=== PATIENT | male | born 1985 | race Caucasian/White ===

== ENCOUNTER 2024-12-07 20:42 | Emergency (ER) | payer BC ==
[~2024-12-07] VITALS: Ht 180.3 cm; Wt 65.6 kg
[2024-12-07 22:05] LABS: BASOPHILS % (AUTO) 0.2 % (0-1); EOSINOPHILS % (AUTO) 0.1 % (0-6); HEMATOCRIT 47.3 % (42.0-52.0); HEMOGLOBIN 16.5 g/dl (14.0-17.9); LYMPHOCYTES # (AUTO) 1.2 X10'3 (1.1-4.8); LYMPHOCYTES % (AUTO) 11.2 % (21-51); MEAN CORPUSCULAR HEMOGLOBIN 29.2 PG (27.0-31.0); MEAN CORPUSCULAR HGB CONC 34.8 g/dL (33.0-36.5); MEAN CORPUSCULAR VOLUME 83.9 FL (78-98); MEAN PLATELET VOLUME 7.6 FL (7.4-10.4); MONOCYTES # (AUTO) 0.7 X10'3 (0-0.9); MONOCYTES % (AUTO) 6.8 % (2-12); NEUTROPHILS # (AUTO) 8.6 X10'3 (1.8-7.7); NEUTROPHILS % (AUTO) 81.7 % (42-75); PLATELET COUNT 282 X10'3 (140-440); RED BLOOD COUNT 5.64 X10'6 (4.70-6.10); RED CELL DISTRIBUTION WIDTH 13.5 % (11.5-14.5); WHITE BLOOD COUNT 10.5 X10'3 (4.5-11.0)
[2024-12-07 22:17] LABS: ALANINE AMINOTRANSFERASE 26 U/L (12-78); ALBUMIN 4.6 G/DL (3.4-5.0); ALBUMIN/GLOBULIN RATIO 1.3 (1.1-1.5); ALKALINE PHOSPHATASE 96 IU/L (46-116); ANION GAP 8 (8-16); ASPARTATE AMINO TRANSFERASE 14 U/L (10-37); BILIRUBIN,TOTAL 1.8 MG/DL (0.1-1.0); BLOOD UREA NITROGEN 15 MG/DL (7-18); BUN/CREATININE RATIO 18.1 (10.0-20.0); CALCIUM 9.2 MG/DL (8.5-10.1); CHLORIDE 108 MMOL/L (99-107); CREATININE 0.83 MG/DL (0.60-1.10); GLUCOSE 132 MG/DL (70-104); LIPASE 33 U/L (16-77); POTASSIUM 4.3 MMOL/L (3.5-5.1); SODIUM 142 MMOL/L (135-145); TOTAL PROTEIN 8.1 G/DL (6.4-8.2); eCRCL 110 ML/MIN; eGFR > 90 ML/MIN
--- NOTE | 2024-12-08 00:03 | Physician Documentation ---
History of Present Illness ~ Chief Complaint: Vomiting Stated Complaint: UNABLE TO KEEP WATER DOWN Time Seen by MD: 23:50 HPI Patient presents to the emergency room with vomiting since 10:00 a.m. this morning. Mild diarrhea. Patient endorses belching and burping up acid. History of reflux. He is also having some shoulder pain associated with retching. Epigastric pain positive. No fevers however he has been feeling flush. No sick contacts Medication Reconciliation Allergies: Coded Allergies: No Known Allergies (Unverified , 12/07/24) Review of Systems ROS All review of systems negative except as per HPI Physical Exam Vital Signs: Temperature: 96.8, Source: Temporal, Heart Rate: 80, Respiratory Rate: 15, BP: 142/65, Pulse Oximetry: 95, Weight: 65.600 Physical Exam General: Patient is awake, alert, oriented x4 in mild distress Head: Normocephalic and atraumatic. Eyes: Conjunctival normal. EOMI. PERRL. ENT: Mucous membranes moist. Neck: Supple, trachea is midline. Chest: Clear to auscultation bilaterally without rales, rhonchi, or wheezes. There is no accessory muscle use or retractions. Cardiac: RRR without murmurs, gallops, or rubs. Abd: Soft, nondistended, mild epigastric tenderness to palpation without peritonitis Progress Results/Orders Results/Orders Orders - JOSHUA RYAN MD Chest,Single View (12/08/24 00:35) Ondansetron Inj. (Zofran 4mg/2ml Vial) (12/08/24 05:55) Completed Orders - JOSHUA RYAN MD Cbc/Diff (12/07/24 21:17) BMP (12/07/24 21:17) Lipase (12/07/24 21:17) CMP (12/07/24 21:17) Ondansetron Disint. Tablet (Zofran Odt T (12/07/24 23:45) Troponin (Single) (12/07/24 23:58) Normal Saline 1000ml (Sodium Chloride 10 (12/08/24 00:00) Ondansetron Inj. (Zofran 4mg/2ml Vial) (12/08/24 00:00) Famotidine/Pf Iv Inj (Pepcid Iv Inj) (12/08/24 00:00) Pantoprazole 40mg Iv (Protonix 40mg Iv) (12/08/24 00:00) Chest,Single View (12/08/24 00:35) Electrocardiogram (12/08/24 00:03) Mag & Alum Hydrox/Simeth Susp (Maalox Or (12/08/24 01:10) Lidocaine 2% Viscous (Xylocaine 2% Visco (12/08/24 01:10) Prochlorperazine Inj (Compazine Inj) (12/08/24 03:20) Diphenhydramine Inj (Benadryl Inj.) (12/08/24 05:20) Midazolam 1 Mg/Ml 2ml Inj. (Versed 1 Mg/ (12/08/24 05:20) Ua W/Microscopic, Cult If Ind (12/08/24 05:00) Medications Received in ER Medications (Trade) Dose Ordered Sig/Joe Route PRN Reason Start Time Stop Time Status Last Admin Dose Admin (Zofran ODT tablet) 4 mg ONCE ONCE PO 12/07/24 23:45 12/07/24 23:47 DC 12/08/24 00:12 4 MG Sodium Chloride 1,000 ml @ 1,000 mls/hr ONCE ONCE IV 12/08/24 00:00 12/08/24 00:59 DC 12/08/24 00:11 1,000 MLS/HR (Zofran 4mg/2ml vial) 8 mg ONCE ONCE IV 12/08/24 00:00 12/08/24 00:34 DC 12/08/24 00:59 8 MG (Pepcid IV inj) 40 mg ONCE ONCE IV 12/08/24 00:00 12/08/24 00:01 DC 12/08/24 00:10 40 MG (Protonix 40mg IV) 40 mg ONCE ONCE IV 12/08/24 00:00 12/08/24 00:01 DC 12/08/24 00:10 40 MG (Maalox oral suspension) 30 ml ONCE ONCE PO 12/08/24 01:10 12/08/24 01:11 DC 12/08/24 01:58 30 ML (Xylocaine 2% Viscous 15mL cup) 15 ml ONCE ONCE MM 12/08/24 01:10 12/08/24 01:11 DC 12/08/24 01:58 15 ML (Compazine inj) 10 mg ONCE ONCE IV 12/08/24 03:20 12/08/24 04:29 DC 12/08/24 04:58 10 MG (Benadryl inj.) 25 mg ONCE ONCE IV 12/08/24 05:20 12/08/24 05:22 DC 12/08/24 05:26 25 MG (VERSED 1 MG/ML 2 ML inj.) 1 mg ONCE ONCE IV 12/08/24 05:20 12/08/24 05:21 DC 12/08/24 05:27 1 MG Vital Signs 12/07/24 12/08/24 12/08/24 12/08/24 21:15 00:17 00:21 02:02 Temp 96.8 96.8 Pulse 80 90 78 Resp 15 18 18 18 B/P (MAP) 142/65 158/113 (128) 128/77 (94) Pulse Ox 95 96 95 12/08/24 12/08/24 03:30 05:32 Temp 96.8 Pulse 82 76 Resp 16 16 B/P (MAP) 142/99 (113) 154/101 (118) Pulse Ox 95 95 Laboratory Tests Test 12/07/24 21:50 12/07/24 23:58 12/08/24 05:00 White Blood Count 10.5 Red Blood Count 5.64 Hemoglobin 16.5 Hematocrit 47.3 Mean Corpuscular Volume 83.9 Mean Corpuscular Hemoglobin 29.2 Mean Corpuscular Hemoglobin Concent 34.8 Red Cell Distribution Width 13.5 Platelet Count 282 Mean Platelet Volume 7.6 Neutrophils (%) (Auto) 81.7 H Lymphocytes (%) (Auto) 11.2 L Monocytes (%) (Auto) 6.8 Eosinophils (%) (Auto) 0.1 Basophils (%) (Auto) 0.2 Neutrophils # (Auto) 8.6 H Lymphocytes # (Auto) 1.2 Monocytes # (Auto) 0.7 Eosinophils # (Auto) 0.0 Basophils # (Auto) 0.0 CBC Comment Sodium Level 142 Potassium Level 4.3 Chloride Level 108 H Carbon Dioxide Level 26.0 Anion Gap 8 Blood Urea Nitrogen 15 Creatinine 0.83 Estimated GFR/1.73 m2 > 90 BUN/Creatinine Ratio 18.1 Glucose Level 132 H Calcium Level 9.2 Total Bilirubin 1.8 H Aspartate Amino Transf (AST/SGOT) 14 Alanine Aminotransferase (ALT/SGPT) 26 Alkaline Phosphatase 96 Total Protein 8.1 Albumin 4.6 Globulin 3.5 Albumin/Globulin Ratio 1.3 Lipase 33 Chemistry Comments Troponin I High Sensitivity 5 Urine Specimen Description Non-specified Urine Color Yellow Urine Clarity Clear Urine pH 6.0 Urine Specific [place] >=1.030 Urine Protein Trace Urine Glucose (UA) Negative Urine Ketones >=80 Urine Occult Blood Trace-intact Urine Nitrite Negative Urine Bilirubin Small Urine Urobilinogen 0.2 Urine Leukocyte Esterase Negative Urine RBC 3-10 Urine WBC 0-4 Urine Squamous Epithelial Cells Few Urine Bacteria Few Urine Mucus Moderate Urine Culture Indicated Not ind Volume Urine Centrifuged 10 ml Urine Comment EKG/XRAY/CT/US/VASC/MRI EKG : Additional Comment EKG interpreted by myself shows 0 12, rate 79, sinus rhythm, normal axis, no ST changes, no signs of pericarditis Chest X-Ray : Additional Comments Chest x-ray interpreted by myself shows no effusions, no infiltrates and normal cardiac silhouette Medical Decision Making Findings Patient presented to the emergency room with nausea and vomiting as per HPI. Differentials include but are not limited to viral syndrome, food poisoning, reflux, small-bowel obstruction therefore emergent labs ordered which were reassuring. Patient did have some shoulder pain that has concern for possible ACS therefore troponin and chest x-ray ordered which was reassuring. He is responding to treatment in his now tolerating p.o.. I do not feel he requires CT scan. Labs reassuring. Departure Disposition: HOME / SELF CARE / HOMELESS Impression: Primary Impression: Acute gastritis Condition: Improved Discharge Instructions: Gastritis, Adult Additional Instructions: Stay ahead of your nausea with a prescription for Zofran/ondansetron. I do believe that has an element of excessive acid contributing to your symptoms therefore Pepcid also prescribed. Referrals: NO PRIMARY CARE PROVIDER (PCP) Prescriptions Famotidine (Pepcid) 20 Mg Tablet 1 TAB PO Q12H, #30 TAB 0 Refills Prov: JOSHUA RYAN MD 12/08/24 Ondansetron 8mg ODT (Ondansetron Odt) 8 Mg Tab.rapdis 1 TAB PO Q6H for nausea/vomiting for 3 Days, #12 TAB 0 Refills Prov: JOSHUA RYAN MD 12/08/24 Education Educated: Patient Educated regarding: diagnosis, treatment, need for follow up Signature Scribe Signature: No scribe Attestation: The note accurately reflects work and decisions made by me.Joshua Ryan MD 12/08/24 05:58 JOSHUA RYAN MD December 08, 2024 00:03
[2024-12-08] MEDS: pantoprazole 40 MG vial IV ONE (00:10)
[2024-12-08] MEDS: famotidine/PF 10 mg/ml inj IV ONE (00:10)
[2024-12-08] MEDS: normal saline 1000ml 1,000 ML IV ONE (00:11)
[2024-12-08] MEDS: ondansetron 4mg rapidly disintigrating tab PO ONE (00:12)
--- NOTE | 2024-12-08 00:15 | ELECTROCARDIOGRAPH REPORT ---
[facility] Test Date: 2024-12-08 Test Time: 00:12:19 Pat Name: SOUTH ANDRADE Department: [facility] Patient ID: [id number] Room: Gender: M Dog Warden: LAZARO : 1985 Requested By: LIANE SNOWDEN Order Number: [id number] Reading MD: Measurements Intervals [place] Rate: 79 P: 65 MN: 134 QRS: 74 QRSD: 92 T: -3 QT: 384 QTc: 441 Interpretive Statements Sinus rhythm Borderline repolarization abnormality Please click the below link to view image of tracing.
[2024-12-08] MEDS: ondansetron/PF 4mg/2ml inj IV ONE ×2 (00:59→06:11)
--- NOTE | 2024-12-08 01:21 | RADIOLOGY REPORT ---
CHEST RADIOGRAPH Indication: cp Technique: Single frontal view of the chest was obtained COMPARISON: None FINDINGS / IMPRESSION: Lines and Tubes: None Lungs: Mild atelectasis/consolidation at left lung base. Right lung is clear. No pulmonary edema. Pleura: No effusion. No pneumothorax. Cardiomediastinal contours: Normal heart size. Probable hiatal hernia.
[2024-12-08] MEDS: mag hydrox/Alum hydrox/simeth 30ml oral suspension PO ONE (01:58)
[2024-12-08] MEDS: LIDOcaine 2% Viscous 15ml cup MM ONE (01:58)
[2024-12-08 03:30] VITALS: TEMP 96.8
[2024-12-08] MEDS: proCHLORperazine 10 MG/2 ml inj IV ONE (04:58)
[2024-12-08 05:18] LABS: BILIRUBIN,URINE SMALL (Neg); CLARITY,URINE CLEAR (Clear); COLOR,URINE YELLOW (Yellow); GLUCOSE, URINE NEGATIVE (Neg); KETONES,URINE >=80 mg/dl (Neg); LEUKOCYTE ESTERASE ,URINE NEGATIVE (Neg); NITRITES, URINE NEGATIVE (Neg); OCCULT BLOOD,URINE TRACE-INTACT (Neg); PROTEIN,URINE TRACE mg/dl (Neg); UROBILINOGEN,URINE 0.2 E.U/dL (0.2-1.0)
[2024-12-08 05:24] LABS: UA COLLECTION TYPE NON-SPECIFIED
[2024-12-08 05:26] LABS: BACTERIA,URINE FEW /HPF (Neg); MUCUS STRANDS MODERATE /LPF (Neg); SQUAMOUS EPITHELIAL CELL,UR FEW /LPF (FEW); WBC,URINE 0-4 /HPF (0-4)
[2024-12-08] MEDS: diphenhydrAMINE 50 mg/ml inj IV ONE (05:26)
[2024-12-08] MEDS: midazolam 1 mg/ML 2ml injection IV ONE (05:27)
[2024-12-08] MEDS ORDERED: ONDA-245 PO (05:57)
[2024-12-08] MEDS ORDERED: FAMO-129 PO (05:57)
[2024-12-08] MEDS: ketorolac trometh 15mg/ml vial 15 MG/ML ML IV ONE (06:08)
[2024-12-08 06:21] VITALS: BP 150/98; PULSE 78; RESP 18; O2SAT 99
== END 2024-12-08 06:23 | disposition home or self-care (01) ==
LOC: ER 20:43
DX: K29.00 Acute gastritis without bleeding (principal)
CPT/HCPCS: 36415; 71045; 80053; 81001; 83690; 84484; 85025; 93005; 96365; 96375; 96376; 99285; J0780; J1200; J1885; J2250; J2405; J2470; J3490; J7030